=== PATIENT | female | born 1990 | race Asian ===

== ENCOUNTER 2019-03-13 18:18 | Emergency (ER) | payer OTHER ==
[~2019-03-13] VITALS: Ht 160 cm; Wt 77.1 kg
[2019-03-13 18:22] VITALS: Ht 160 cm; Wt 77.1 kg
[2019-03-13 19:07] LABS: BASOPHIL % 0.5 % (0-2); PLATELET COUNT 383 x10^3mcL (130-400); RED CELL DISTRIBUTION WIDTH 12.9 % (11.5-14.5)
[2019-03-13 19:15] LABS: CALCIUM 8.5 mg/dL (8.5-10.1); CARBON DIOXIDE 28.7 mmol/L (21-32); CHLORIDE SERUM 104 mmol/L (98-107); CREATININE SERUM 1.1 mg/dL (0.6-1.0); GFR1 > 60 mL/min; GLUCOSE SERUM 158 mg/dL (74-106); POTASSIUM SERUM 3.9 mmol/L (3.5-5.1); SODIUM SERUM 139 mmol/L (136-145)
[2019-03-13 19:19] LABS: ALBUMIN 3.6 g/dL (3.4-5.0); ALKALINE PHOSPHATASE 138 U/L (46-116); ALT/SGPT 25 U/L (14-59); AST/SGOT 10 U/L (15-37); BILIRUBIN TOTAL 0.24 mg/dL (0.20-1.00); LIPASE 165 IU/L (73-393); TOTAL PROTEIN, SERUM 8.1 g/dL (6.4-8.2)
[2019-03-13 22:10] VITALS: BP 118/65
== END 2019-03-13 22:10 | disposition home or self-care (01) ==
LOC: ED 18:18
PROVIDERS: Specialist
DX: K80.20 Calculus of gallbladder without cholecystitis without obstruction (principal)
CPT/HCPCS: J1100; J2405; J7030; Q0092

== ENCOUNTER 2019-03-27 13:30 | Emergency (ER) | payer OTHER ==
[~2019-03-27] VITALS: Ht 157.5 cm; Wt 98.9 kg
[2019-03-27 13:36] VITALS: Ht 157.5 cm; Wt 98.9 kg
[2019-03-27 17:01] VITALS: BP 127/72
== END 2019-03-27 17:01 | disposition home or self-care (01) ==
LOC: ED 13:30
DX: H65.91 Unspecified nonsuppurative otitis media, right ear (principal); R10.11 Right upper quadrant pain; E11.9 Type 2 diabetes mellitus without complications

== ENCOUNTER 2019-06-09 15:56 | Emergency (ER) | payer OTHER ==
[~2019-06-09] VITALS: Ht 160 cm; Wt 100.7 kg
[2019-06-09 16:08] VITALS: BP 111/79; Ht 160 cm; Wt 100.7 kg
== END 2019-06-09 18:17 | disposition home or self-care (01) ==
LOC: ED 15:56
DX: J01.00 Acute maxillary sinusitis, unspecified (principal); J01.10 Acute frontal sinusitis, unspecified; E11.9 Type 2 diabetes mellitus without complications; Z87.19 Personal history of other diseases of the digestive system

== ENCOUNTER 2019-10-02 09:42 | Emergency (ER) | payer OTHER ==
[~2019-10-02] VITALS: Ht 160 cm; Wt 99.8 kg
[2019-10-02 09:52] VITALS: BP 127/88; Ht 160 cm; Wt 99.8 kg
== END 2019-10-02 11:50 | disposition home or self-care (01) ==
LOC: ED 09:42
DX: L73.9 Follicular disorder, unspecified (principal); J06.9 Acute upper respiratory infection, unspecified
CPT/HCPCS: 82962

== ENCOUNTER 2019-10-16 05:49 | Emergency (ER) | payer OTHER ==
[~2019-10-16] VITALS: Ht 160 cm; Wt 99.8 kg
[2019-10-16 05:57] VITALS: Ht 160 cm; Wt 99.8 kg
[2019-10-16 06:35] VITALS: BP 128/87
== END 2019-10-16 06:35 | disposition home or self-care (01) ==
LOC: ED 05:49
DX: T49.4X5A Adverse effect of keratolytics, keratoplastics, and other hair treatment drugs and preparations, initial encounter (principal); L25.9 Unspecified contact dermatitis, unspecified cause; Y92.89 Other specified places as the place of occurrence of the external cause

== ENCOUNTER 2019-10-18 19:26 | Emergency (ER) | payer OTHER ==
[~2019-10-18] VITALS: Ht 160 cm; Wt 101.6 kg
[2019-10-18 19:43] VITALS: Ht 160 cm; Wt 101.6 kg
[2019-10-18 20:46] VITALS: BP 112/82
== END 2019-10-18 20:46 | disposition home or self-care (01) ==
LOC: ED 19:26
DX: J10.1 Influenza due to other identified influenza virus with other respiratory manifestations (principal); E11.9 Type 2 diabetes mellitus without complications
CPT/HCPCS: 87804

== ENCOUNTER 2019-10-22 02:01 | Emergency (ER) | payer OTHER ==
[~2019-10-22] VITALS: Ht 160 cm; Wt 100.7 kg
[2019-10-22 02:07] VITALS: BP 127/82; Ht 160 cm; Wt 100.7 kg
== END 2019-10-22 02:27 | disposition home or self-care (01) ==
LOC: ED 02:01
DX: L03.312 Cellulitis of back [any part except buttock and flank] (principal); E11.9 Type 2 diabetes mellitus without complications

== ENCOUNTER 2019-10-24 19:48 | Emergency (ER) | payer OTHER ==
[~2019-10-24] VITALS: Ht 160 cm; Wt 101.2 kg
[2019-10-24 20:08] VITALS: Ht 160 cm; Wt 101.2 kg
[2019-10-24 22:29] LABS: CALCIUM 8.7 mg/dL (8.5-10.1); CARBON DIOXIDE 31.2 mmol/L (21-32); CHLORIDE SERUM 101 mmol/L (98-107); CREATININE SERUM 1.1 mg/dL (0.6-1.0); GFR1 > 60 mL/min; GLUCOSE SERUM 214 mg/dL (74-106); POTASSIUM SERUM 4.1 mmol/L (3.5-5.1); SODIUM SERUM 137 mmol/L (136-145)
[2019-10-24 22:30] LABS: BASOPHIL % 0.3 % (0-2); PLATELET COUNT 391 x10^3mcL (130-400)
[2019-10-24 22:35] LABS: ALKALINE PHOSPHATASE 132 U/L (46-116); ALT/SGPT 34 U/L (14-59); AST/SGOT 12 U/L (15-37); BILIRUBIN TOTAL 0.2 mg/dL (0.20-1.00)
[2019-10-24 22:40] LABS: ALBUMIN 3.3 g/dL (3.4-5.0)
[2019-10-25 00:41] VITALS: BP 107/87
== END 2019-10-25 00:41 | disposition home or self-care (01) ==
LOC: ED 19:48
PROVIDERS: Emergency Medicine
DX: L02.212 Cutaneous abscess of back [any part, except buttock and flank] (principal); E11.65 Type 2 diabetes mellitus with hyperglycemia; Z87.19 Personal history of other diseases of the digestive system
CPT/HCPCS: 82962; J1885; J2001

== ENCOUNTER 2019-10-27 10:03 | Emergency (ER) | payer OTHER ==
[~2019-10-27] VITALS: Ht 160 cm; Wt 99.3 kg
[2019-10-27 10:11] VITALS: BP 130/79; Ht 160 cm; Wt 99.3 kg
== END 2019-10-27 12:00 | disposition home or self-care (01) ==
LOC: ED 10:03
DX: L02.212 Cutaneous abscess of back [any part, except buttock and flank] (principal); E11.9 Type 2 diabetes mellitus without complications; Z48.01 Encounter for change or removal of surgical wound dressing; Z87.19 Personal history of other diseases of the digestive system

== ENCOUNTER 2020-01-09 18:14 | Emergency (ER) | payer OTHER, SELFPAY ==
[~2020-01-09] VITALS: Ht 165.1 cm; Wt 98.0 kg
[2020-01-09 18:43] VITALS: Ht 165.1 cm; Wt 98.0 kg
[2020-01-09 22:26] VITALS: BP 127/79
== END 2020-01-09 22:26 | disposition home or self-care (01) ==
LOC: ED 18:14
DX: U07.1 COVID-19 (principal); R50.9 Fever, unspecified; E11.9 Type 2 diabetes mellitus without complications
CPT/HCPCS: Q0092; U0003-CS

== ENCOUNTER 2020-03-29 07:24 | Emergency (ER) | payer OTHER ==
[~2020-03-29] VITALS: Ht 157.5 cm; Wt 98.0 kg
[2020-03-29 07:36] VITALS: Ht 157.5 cm; Wt 98.0 kg
[2020-03-29 08:44] LABS: UA SPECIFIC GRAVITY 1.025 (1.005-1.035); microscopic required? YES; urine erythrocyte NEGATIVE (NEGATIVE)
[2020-03-29 08:53] LABS: CALCIUM 8.9 mg/dL (8.5-10.1); CARBON DIOXIDE 29.3 mmol/L (21-32); CHLORIDE SERUM 101 mmol/L (98-107); CREATININE SERUM 0.8 mg/dL (0.6-1.0); GFR1 > 60 mL/min; GLUCOSE SERUM 126 mg/dL (74-106); POTASSIUM SERUM 3.4 mmol/L (3.5-5.1); SODIUM SERUM 138 mmol/L (136-145)
[2020-03-29 08:55] LABS: BASOPHIL % 0.2 % (0-2); PLATELET COUNT 347 x10^3mcL (130-400); RED CELL DISTRIBUTION WIDTH 13.7 % (11.5-14.5)
[2020-03-29 08:59] LABS: ALBUMIN 3.7 g/dL (3.4-5.0); ALKALINE PHOSPHATASE 86 U/L (46-116); ALT/SGPT 30 U/L (14-59); AST/SGOT 16 U/L (15-37); BILIRUBIN TOTAL 0.4 mg/dL (0.20-1.00); TOTAL PROTEIN, SERUM 7.5 g/dL (6.4-8.2)
[2020-03-29 10:03] VITALS: BP 124/68
== END 2020-03-29 10:03 | disposition home or self-care (01) ==
LOC: ED 07:24
PROVIDERS: Emergency Medicine
DX: N39.0 Urinary tract infection, site not specified (principal); R53.1 Weakness; E11.9 Type 2 diabetes mellitus without complications
CPT/HCPCS: 82962; Q0092

== ENCOUNTER → 2020-05-08 | Outpatient (CLI) | payer OTHER ==
[2020-05-08 18:06] LABS: AMPHETAMINE QUAL UR NONE DETECTED (See below)
[2020-05-08 18:30] LABS: BASOPHIL % 0.3 % (0-2); PLATELET COUNT 339 x10^3mcL (130-400); RED CELL DISTRIBUTION WIDTH 13.4 % (11.5-14.5)
== END | disposition home or self-care (01) ==
LOC: LB 17:09
DX: Z33.1 Pregnant state, incidental (principal)
CPT/HCPCS: 87491; 87591

== ENCOUNTER 2020-05-20 07:33 | Emergency (ER) | payer OTHER ==
[~2020-05-20] VITALS: Ht 157.5 cm; Wt 97.5 kg
[2020-05-20 07:41] VITALS: Ht 157.5 cm; Wt 97.5 kg
[2020-05-20 08:28] LABS: BASOPHIL % 0.3 % (0-2); PLATELET COUNT 312 x10^3mcL (130-400); RED CELL DISTRIBUTION WIDTH 13.5 % (11.5-14.5)
[2020-05-20 08:40] LABS: microscopic required? NO
[2020-05-20 08:45] LABS: UA SPECIFIC GRAVITY >=1.030 (1.005-1.035); urine erythrocyte NEGATIVE (NEGATIVE)
[2020-05-20 09:02] LABS: CALCIUM 8.4 mg/dL (8.5-10.1); CARBON DIOXIDE 25.7 mmol/L (21-32); CHLORIDE SERUM 101 mmol/L (98-107); CREATININE SERUM 0.7 mg/dL (0.6-1.0); GFR1 > 60 mL/min; GLUCOSE SERUM 122 mg/dL (74-106); POTASSIUM SERUM 3.6 mmol/L (3.5-5.1); SODIUM SERUM 136 mmol/L (136-145)
[2020-05-20 09:06] LABS: ALKALINE PHOSPHATASE 73 U/L (46-116); ALT/SGPT 36 U/L (14-59); AST/SGOT 14 U/L (15-37); BILIRUBIN TOTAL 0.3 mg/dL (0.20-1.00); LIPASE 94 IU/L (73-393); TOTAL PROTEIN, SERUM 7.2 g/dL (6.4-8.2)
[2020-05-20 09:08] LABS: ALBUMIN 3.3 g/dL (3.4-5.0)
[2020-05-20 10:04] VITALS: BP 120/65
== END 2020-05-20 10:04 | disposition home or self-care (01) ==
LOC: ED 07:33
PROVIDERS: Emergency Medicine
DX: R51.9 Headache, unspecified (principal); R10.9 Unspecified abdominal pain; E11.9 Type 2 diabetes mellitus without complications
CPT/HCPCS: J7030

== ENCOUNTER 2020-06-11 02:54 | Emergency (ER) | payer OTHER ==
[~2020-06-11] VITALS: Ht 157.5 cm; Wt 94.3 kg
[2020-06-11 02:59] VITALS: Ht 157.5 cm; Wt 94.3 kg
[2020-06-11 04:03] LABS: CALCIUM 9.4 mg/dL (8.5-10.1); CARBON DIOXIDE 28.3 mmol/L (21-32); CHLORIDE SERUM 102 mmol/L (98-107); CREATININE SERUM 0.7 mg/dL (0.6-1.0); GFR1 > 60 mL/min; GLUCOSE SERUM 131 mg/dL (74-106); POTASSIUM SERUM 3.7 mmol/L (3.5-5.1); SODIUM SERUM 136 mmol/L (136-145)
[2020-06-11 04:05] LABS: BASOPHIL % 0.2 % (0-2); PLATELET COUNT 340 x10^3mcL (130-400); RED CELL DISTRIBUTION WIDTH 13.7 % (11.5-14.5)
[2020-06-11 04:09] LABS: ALBUMIN 3.4 g/dL (3.4-5.0); ALKALINE PHOSPHATASE 97 U/L (46-116); ALT/SGPT 93 U/L (14-59); AST/SGOT 142 U/L (15-37); BILIRUBIN TOTAL 0.6 mg/dL (0.20-1.00); LIPASE 108 IU/L (73-393); TOTAL PROTEIN, SERUM 7.7 g/dL (6.4-8.2)
[2020-06-11 05:42] VITALS: BP 114/55
== END 2020-06-11 05:42 | disposition home or self-care (01) ==
LOC: ED 02:54
PROVIDERS: Emergency Medicine
DX: K80.20 Calculus of gallbladder without cholecystitis without obstruction (principal); E11.9 Type 2 diabetes mellitus without complications
CPT/HCPCS: J7030

== ENCOUNTER 2020-06-17 02:59 | Emergency (ER) | payer OTHER ==
[~2020-06-17] VITALS: Ht 157.5 cm; Wt 94.3 kg
[2020-06-17 03:48] LABS: BASOPHIL % 0.5 % (0-2); PLATELET COUNT 320 x10^3mcL (130-400); RED CELL DISTRIBUTION WIDTH 13.6 % (11.5-14.5)
[2020-06-17 04:07] LABS: microscopic required? NO
[2020-06-17 04:15] LABS: UA SPECIFIC GRAVITY 1.025 (1.005-1.035); urine erythrocyte NEGATIVE (NEGATIVE)
[2020-06-17 04:28] LABS: CALCIUM 9.1 mg/dL (8.5-10.1); CARBON DIOXIDE 26.2 mmol/L (21-32); CHLORIDE SERUM 100 mmol/L (98-107); CREATININE SERUM 0.7 mg/dL (0.6-1.0); GFR1 > 60 mL/min; GLUCOSE SERUM 126 mg/dL (74-106); POTASSIUM SERUM 3.6 mmol/L (3.5-5.1); SODIUM SERUM 134 mmol/L (136-145)
[2020-06-17 04:33] LABS: ALKALINE PHOSPHATASE 92 U/L (46-116); ALT/SGPT 38 U/L (14-59); AMYLASE 47 U/L (25-115); AST/SGOT 16 U/L (15-37); BILIRUBIN TOTAL 0.35 mg/dL (0.20-1.00); LIPASE 127 IU/L (73-393); TOTAL PROTEIN, SERUM 7.7 g/dL (6.4-8.2)
[2020-06-17 04:42] LABS: ALBUMIN 3.3 g/dL (3.4-5.0)
[2020-06-17 06:32] VITALS: BP 105/69
== END 2020-06-17 06:32 | disposition home or self-care (01) ==
LOC: ED 02:59
PROVIDERS: Emergency Medicine
DX: O99.611 Diseases of the digestive system complicating pregnancy, first trimester (principal); K80.70 Calculus of gallbladder and bile duct without cholecystitis without obstruction; O24.911 Unspecified diabetes mellitus in pregnancy, first trimester; Z3A.13 13 weeks gestation of pregnancy; Z87.19 Personal history of other diseases of the digestive system
CPT/HCPCS: J2270; J2765; J7030

== ENCOUNTER 2020-08-08 12:18 | Emergency (ER) | payer OTHER ==
[~2020-08-08] VITALS: Ht 160 cm; Wt 94.3 kg
[2020-08-08 13:15] VITALS: Ht 160 cm; Wt 94.3 kg
[2020-08-08 15:17] LABS: BASOPHIL % 0.2 % (0.2-1.3); PLATELET COUNT 340 x10^3mcL (179-408); RED CELL DISTRIBUTION WIDTH 13.3 % (12.3-17.7)
[2020-08-08 16:00] LABS: CALCIUM 8.7 mg/dL (8.5-10.1); CHLORIDE SERUM 103 mmol/L (98-107); CREATININE SERUM 0.6 mg/dL (0.6-1.0); GFR1 > 60 mL/min; GLUCOSE SERUM 133 mg/dL (74-106); POTASSIUM SERUM 3.2 mmol/L (3.5-5.1); SODIUM SERUM 136 mmol/L (136-145)
[2020-08-08 16:04] LABS: ALKALINE PHOSPHATASE 100 U/L (46-116); ALT/SGPT 36 U/L (14-59); AMYLASE 56 U/L (25-115); AST/SGOT 37 U/L (15-37); BILIRUBIN TOTAL 0.6 mg/dL (0.20-1.00); LIPASE 90 IU/L (73-393); TOTAL PROTEIN, SERUM 7.4 g/dL (6.4-8.2)
[2020-08-08 17:16] VITALS: BP 113/67
== END 2020-08-08 17:53 | disposition home or self-care (01) ==
LOC: ED 12:18
PROVIDERS: Emergency Medicine
DX: O99.612 Diseases of the digestive system complicating pregnancy, second trimester (principal); K80.50 Calculus of bile duct without cholangitis or cholecystitis without obstruction; K80.20 Calculus of gallbladder without cholecystitis without obstruction; Z3A.21 21 weeks gestation of pregnancy; Z20.828 Contact with and (suspected) exposure to other viral communicable diseases
CPT/HCPCS: J2270; J2405

== ENCOUNTER → 2020-08-15 | Outpatient (CLI) | payer OTHER ==
[2020-08-15 16:50] LABS: BASOPHIL % 0.5 % (0.2-1.3); PLATELET COUNT 343 x10^3mcL (179-408); RED CELL DISTRIBUTION WIDTH 13.3 % (12.3-17.7)
[2020-08-15 17:02] LABS: ALKALINE PHOSPHATASE 92 U/L (46-116); ALT/SGPT 24 U/L (14-59); AST/SGOT 11 U/L (15-37); BILIRUBIN TOTAL 0.3 mg/dL (0.20-1.00); CALCIUM 9.1 mg/dL (8.5-10.1); CARBON DIOXIDE 26.9 mmol/L (21-32); CHLORIDE SERUM 100 mmol/L (98-107); CREATININE SERUM 0.6 mg/dL (0.6-1.0); GFR1 > 60 mL/min; GLUCOSE SERUM 88 mg/dL (74-106); POTASSIUM SERUM 3.8 mmol/L (3.5-5.1); SODIUM SERUM 136 mmol/L (136-145); TOTAL PROTEIN, SERUM 7.3 g/dL (6.4-8.2)
[2020-08-15 17:04] LABS: ALBUMIN 3.1 g/dL (3.4-5.0)
== END | disposition home or self-care (01) ==
LOC: LB 16:21
DX: R42 Dizziness and giddiness (principal); H53.9 Unspecified visual disturbance